=== PATIENT | female | born 1960 | race Caucasian/White ===

== ENCOUNTER 2021-08-04 21:38 | Emergency (ER) | payer BC ==
[~2021-08-04] VITALS: Ht 170.2 cm; Wt 110.9 kg
--- NOTE | 2021-08-04 22:32 | PHYS DOC ---
Past History Past Surgical History: Cholecystectomy, Alcohol Use: Occasionally Adult General Chief Complaint Chief Complaint: MECHANICAL FALL HPI HPI Patient is an otherwise healthy 60-year-old female comes to the emergency department after a fall. States that about 4 hours ago she was walking down her stairs, caught her foot fell backwards into the wall hitting her head against the drywall. Did not lose consciousness, has had no changes in vision, no neck pain no chest pain no shortness of breath. Has not had no numbness/weakness/tingling. States she is able to ambulate without issue. Has had no loss of consciousness. States she had a headache for about an hour or 2 but took some Tylenol and that is currently gone. States she had some nausea but no vomiting which is also resolved. Denies any other injuries. States she is currently asymptomatic. Review of Systems Review of Systems Review of systems otherwise unremarkable except noted in HPI Allergies Allergies Allergies Coded Allergies Type Severity Reaction Last Updated Verified Sulfa (Sulfonamide Antibiotics) Allergy Unknown 08/04/21 Yes codeine Allergy Unknown 08/04/21 Yes Physical Exam Physical Exam Constitutional: Well developed, well nourished, no acute distress, non-toxic appearance. [] HENT: Mild swelling on occiput with no erythema, bruising, crepitus or signs of skull fracture, bilateral external ears normal, tympanic membranes normal, oropharynx moist, no oral exudates, nose normal. [] Eyes: PERRLA, EOMI, conjunctiva normal, no discharge. [] Neck: Normal range of motion, no tenderness, supple, no stridor. [] Cardiovascular:Heart rate regular rhythm, no murmur [] Lungs & Thorax: Bilateral breath sounds clear to auscultation [] Abdomen: Bowel sounds normal, soft, no tenderness, no masses, no pulsatile masses. [] Skin: Warm, dry, no erythema, no rash. [] Back: No tenderness, no CVA tenderness. [] Extremities: No tenderness, no cyanosis, no clubbing, ROM intact, no edema. [] Neurologic: Alert and oriented X 3, normal motor function, normal sensory function, able to sit, stand and walk without issue, no focal deficits noted. [] Psychologic: Affect normal, judgement normal, mood normal. [] Current Patient Data Vital Signs Vital Signs Date Time Temp Pulse Resp B/P (MAP) Pulse Ox O2 Delivery O2 Flow Rate FiO2 08/04/21 21:51 98.0 85 16 131/76 (94) 98 Room Air EKG EKG [] Radiology/Procedures Radiology/Procedures [] Heart Score C/O Chest Pain: No Risk Factors: Risk Factors: DM, Current or recent (<one month) smoker, HTN, HLP, family history of CAD, obesity. Risk Scores: Risk Factors: DM, Current or recent (<one month) smoker, HTN, HLP, family history of CAD, obesity. Course & Med Decision Making Course & Med Decision Making Patient is a 60-year-old female who comes in after a fall 4 hours ago, stating that she came in because her daughter is in nursing school and thought she may have a concussion Vital signs nonconcerning. Physical exam noted above. Denied need for pain medicine. Given ice pack for home. Asymptomatic in the ED. Discussed concussions and given concussion education Advised to stay home over the weekend, relax and follow her concussion precautions. Advised only activity as tolerated and nothing excessive. Advised to follow-up on Saturday with primary care physician Gave return precautions to the ED. Patient grateful, verbalized understanding and agreed with plan of discharge [] Dragon Disclaimer Dragon Disclaimer This electronic medical record was generated, in whole or in part, using a voice recognition dictation system. Departure Departure: Impression: Primary Impression: Concussion Disposition: HOME / SELF CARE / HOMELESS Condition: STABLE Referrals: ALEXIS NOGUEIRA MD (PCP) Patient Instructions: Concussion and Brain Injury Additional Instructions: Thank you for coming into the emergency department tonight and allowing us to take care of you. Please read the attached information carefully to go over things we discussed. You can use Tylenol, ibuprofen, Benadryl and ice packs as we discussed. Please only participate in activities as tolerated as we discussed. Please follow-up on Saturday with your primary care physician update on your ED visit and set up a follow-up for reevaluation. Please come back with new or concerning symptoms as discussed. STEPHY HALL MD August 04, 2021 22:32
[2021-08-04 22:39] VITALS: BP 130/71
== END 2021-08-04 22:39 | disposition home or self-care (01) ==
LOC: ER 21:38
DX: S06.0X9A Concussion with loss of consciousness of unspecified duration, initial encounter (principal); Z88.5 Allergy status to narcotic agent; Z88.2 Allergy status to sulfonamides; W18.09XA Striking against other object with subsequent fall, initial encounter; Y93.01 Activity, walking, marching and hiking; Y92.89 Other specified places as the place of occurrence of the external cause; Y99.8 Other external cause status
CPT/HCPCS: 99282